=== PATIENT | male | born 2000 | race Caucasian/White ===

== ENCOUNTER 2024-04-03 13:06 | Emergency (ER) | payer SELFPAY ==
[2024-04-03 13:09] VITALS: BP 170/102
--- NOTE | 2024-04-03 14:32 | ED.GENMED ---
History of Present Illness
General
Chief Complaint: Dental Problem
Source: patient
Exam Limitations: none
Time Seen by Provider: 04/03/24 14:22
History of Present Illness
History of Present Illness:
23-year-old male presents complaining of pain and swelling to the left lower jaw starting 2 days ago getting worse. He states he started to have difficulty opening his mouth secondary to this. He denies fevers. No history of diabetes. He tried
Orajel without significant relief. No other complaints at this time
Phy Exam
Physical Exam
Physical Exam:
General: Well-appearing male no acute respiratory distress
HEENT: Normocephalic. There is gingival swelling noted over the left mandibular teeth mostly the second and third molar. Patient is able to open his mouth to finger breaths. Posterior pharynx is pain the floor the mouth is soft and neck is supple
Extremities: No cyanosis
Skin warm no rash
Course
Orders/Labs/Results
Orders:
Orders
04/03/24 14:30
Amoxicillin 875 mg/Clav 125 mg [Augmentin 875 mg/125 mg] 1 tablet PO NOW STA
Ibuprofen [Motrin] 600 mg PO NOW STA
Vital Signs
Initial and Last Documented VS:
Initial Vital Signs
Temp Pulse Resp BP Pulse Ox
98.5 F 110 16 170/102 98
04/03/24 13:09 04/03/24 13:09 04/03/24 13:09 04/03/24 13:09 04/03/24 13:09
Last Documented Vital Signs
Temp Pulse Resp BP Pulse Ox
98.5 F 110 16 170/102 98
04/03/24 13:09 04/03/24 13:09 04/03/24 13:09 04/03/24 13:09 04/03/24 13:09
MDM/Problems Addressed
Differential Diagnosis Includes:
Patient with pain and swelling left lower teeth. Suspect underlying dental infection versus abscess. Nothing drainable at this time. Patient is tolerating oral liquids and solids. No respiratory distress no signs of spread into the neck. Will
treat with Augmentin. Will advise Motrin and dental follow-up. Stable for discharge
*Critical Care Note
Total Time (30-74mins, 75-104mins- exclusive of procedures): Not Applicable
ED Attending Note
-
Portions of this chart may have been created with voice recognition software.� Occasional wrong word or��sound alike� substitutions may have occurred due to the inherent limitations of voice recognition software.
Discharge Plan
Departure
Patient Disposition: Home (Routine Discharge)
Date of Disposition: 04/03/24
Time of Disposition: 14:34
Patient with high blood pressure during this ER visit?: No
Discharge Problem:
Dental abscess
Instructions: Tooth Abscess (DC)
Prescriptions:
New
amoxicillin-pot clavulanate 875-125 mg tablet
1 tab PO BID Qty: 14 0RF
Referrals:
UNKNOWN - PT DOES,NOT KNOW [Family Provider] -
Activity Restrictions/Additional Instructions:
Use warm salt water rinses several times a day. Continue with ibuprofen 600 mg every 6-8 hours for pain. Take antibiotics as directed. Return here for worsening symptoms otherwise follow-up with dentist
Interventions
Interventions:
*Risk Screen - Suicide Last Done: 04/03/24 13:09
*General Assessment Last Done: 04/03/24 13:09
*Neglect/Abuse Screening Last Done: 04/03/24 13:09
*ED COVID-19 Vaccine History Last Done: 04/03/24 13:09
Discharge Date and Time
Print Language: MONTSERRATIAN
[2024-04-03] MEDS: MOTRIN 600 MG PO (14:41)
[2024-04-03] MEDS: AUGMENTIN 875 MG/125 MG 1 TABLET PO (14:41)
== END 2024-04-03 14:49 | disposition home or self-care (01) ==
LOC: EMR 13:06
PROVIDERS: EMERGENCY PHYSICIAN Emergency Medicine
DX: K04.7 Periapical abscess without sinus (principal)
CPT/HCPCS: 99283